=== PATIENT | female | born 1935 | race Caucasian/White ===

== ENCOUNTER 2025-02-25 18:09 | Emergency (ER) | payer OTHER ==
[~2025-02-25] VITALS: Ht 149.9 cm; Wt 63.5 kg
[2025-02-25 19:44] LABS: RED CELL DISTRIBUTION WIDTH 12.8 % (12.3-17.7); WHITE BLOOD COUNT (AUTO) 8.1 K/uL (3.8-11.8)
[2025-02-25] MEDS ORDERED: ACETAMINOPHEN 500 MG TABLET ONE (19:47)
[2025-02-25 19:49] LABS: PLATELET COUNT (AUTO) 201 K/uL (179-408); RED BLOOD CELL COUNT(AUTO) 4.36 MIL/uL (3.63-4.92)
[2025-02-25] MEDS: ACETAMINOPHEN 500 MG TABLET PO ONE (19:49)
[2025-02-25 19:50] LABS: CREATININE 0.8 mg/dL (0.6-1.3); SODIUM SERUM 137 mmol/L (136-145); UREA NITROGEN, BLOOD 14 mg/dL (7-18)
[2025-02-25 19:55] LABS: ASPARTATE AMINOTRANSFERASE 19 U/L (15-37); TOTAL PROTEIN, SERUM 7.3 g/dL (6.4-8.2)
[2025-02-25] MEDS ORDERED: TDAP DIPH,PERTUSS,TET VAC/PF 0.5 ML DISP.SYRIN IM ONE (19:56)
[2025-02-25] MEDS: TDAP DIPH,PERTUSS,TET VAC/PF 0.5 ML DISP.SYRIN IM ONE (20:32)
[2025-02-25] MEDS ORDERED: ONDANSETRON ODT 4 MG TAB.RAPDIS ONE (21:49)
[2025-02-25] MEDS: ONDANSETRON ODT 4 MG TAB.RAPDIS SL ONE (21:50)
[2025-02-25] MEDS ORDERED: CEPH500T PO (22:23)
[2025-02-25] MEDS ORDERED: HYDR-4209 PO (22:23)
[2025-02-25] MEDS ORDERED: ONDA4TAB11 PO (22:23)
[2025-02-25] MEDS ORDERED: CEFTRIAXONE 1 G VIAL ONE (22:49)
[2025-02-25] MEDS: CEFTRIAXONE 1 G VIAL IM ONE (23:00)
[2025-02-25 23:32] VITALS: BP 145/70; O2SAT 99
== END 2025-02-25 23:01 | disposition home or self-care (01) ==
LOC: ER 18:27
DX: S01.511A Laceration without foreign body of lip, initial encounter (principal); S13.4XXA Sprain of ligaments of cervical spine, initial encounter; S20.212A Contusion of left front wall of thorax, initial encounter; S00.83XA Contusion of other part of head, initial encounter; S50.311A Abrasion of right elbow, initial encounter; S50.312A Abrasion of left elbow, initial encounter; S50.811A Abrasion of right forearm, initial encounter; E78.00 Pure hypercholesterolemia, unspecified; I10 Essential (primary) hypertension; J45.909 Unspecified asthma, uncomplicated; Z88.0 Allergy status to penicillin; Z88.2 Allergy status to sulfonamides; W01.0XXA Fall on same level from slipping, tripping and stumbling without subsequent striking against object, initial encounter; Y93.89 Activity, other specified; Y92.89 Other specified places as the place of occurrence of the external cause; Y99.8 Other external cause status
CPT/HCPCS: 99285; 72125; 71045; 80076; 80048; 83880; 85025; 85379; 84484 ×2; 36415; 73090; 90715; 93005; 96372; 90471; J0696; A4606; A4663; A9150; Q0162